=== PATIENT | male | born 1970 | race Caucasian/White ===

== ENCOUNTER 2017-02-07 13:01 | Emergency (ER) | payer MEDICAID, OTHER ==
[~2017-02-07] VITALS: Ht 175.3 cm; Wt 77.5 kg
[2017-02-07 13:11] VITALS: Ht 175.3 cm; Wt 77.5 kg
[2017-02-07] MEDS ORDERED: ONDANSETRON (ODT) 4 MG TAB ODT STA (14:20)
[2017-02-07] MEDS ORDERED: HYDROCODONE/APAP (10/325) TAB PO ONE (14:30)
--- NOTE | 2017-02-07 14:58 | RADRPT ---
PROCEDURE: XR left tibia/fibula. CLINICAL INDICATION: Leg pain TECHNIQUE: Two views available for review. COMPARISON: None available FINDINGS: The osseous structures are normal in mineralization, architecture and alignment. No fractures are i dentified. No osseous lesions are identified. The joints are unremarkable. The soft tissues are u nremarkable. IMPRESSION: Unremarkable examination RPTAT: HGDB .Luis F Poole MD, MD Date Time Electronically viewed and signed by .Luis F Poole MD, on 02/07/2017 14:58 .B/
[2017-02-07] MEDS ORDERED: IBUP-1542 PO (15:13)
[2017-02-07] MEDS ORDERED: HYDR-902 PO (15:13)
--- NOTE | 2017-02-07 15:52 | ERD ---
ER Documentation Chief Complaint Date/Time DATE: 02/07/17 TIME: 15:49 Chief Complaint LEFT LEG PAIN X 18 DAYS; PT FELL HPI Patient is a 46-year-old male with no medical problems who presents with leg pain. The patient said that for 1 week he had left sided lower leg pain. The patient said that he twisted his left ankle 7 days ago when this pain started. He is having difficulty with walking because of the pain. The patient has had no treatment as of yet. He does not currently have a primary doctor. ROS All systems reviewed and are negative except as per history of present illness. Medications Home Meds Active Scripts Hydrocodone/Acetaminophen ([place] 10-325 Tablet) 1 Each Tablet, 1 TAB PO Q6H Y for PAIN, #7 TAB Prov:LUCIO BARRON MD 02/07/17 Ibuprofen* (Motrin*) 600 Mg Tab, 600 MG PO Q8, #30 TAB Prov:LUCIO BARRON MD 02/07/17 Allergies Allergies: Coded Allergies: No Known Allergy (Unverified , 01/05/15) PMhx/Soc Medical and Surgical Hx: pt denies Medical Hx, pt denies Surgical Hx Hx Alcohol Use: Yes (occassional) Hx Substance Use: No Hx Tobacco Use: No FmHx Family History: diabetes Physical Exam Vitals Vital Signs Date Time Temp Pulse Resp B/P Pulse Ox O2 Delivery O2 Flow Rate FiO2 02/07/17 13:11 98.9 78 19 159/106 96 Physical Exam Const: No acute distress Head: Atraumatic Eyes: Normal Conjunctiva ENT: Normal External Ears, Nose and Mouth. Neck: Full range of motion..~ No meningismus. Resp: Clear to auscultation bilaterally Cardio: Regular rate and rhythm, no murmurs Abd: Soft, non tender, non distended. Normal bowel sounds Skin: No petechiae or rashes Back: No midline or flank tenderness Ext: Tenderness to palpation of the left casiano and calf without signs of deformity or infection Neur: Awake and alert Psych: Normal Mood and Affect Results 24 hrs Current Medications Medications (Trade) Dose Ordered Sig/Alvaro Route PRN Reason Start Time Stop Time Status Last Admin Dose Admin Acetaminophen/ Hydrocodone Bitart ([place] (10/325)) 1 tab ONCE ONCE PO 02/07/17 14:30 02/07/17 14:31 DC 02/07/17 15:15 Ondansetron HCl (Zofran Odt) 4 mg ONCE STAT ODT 02/07/17 14:20 02/07/17 14:22 DC 02/07/17 15:15 Procedures/MDM X-ray of the left tibia and fibula was negative per radiology. Splint Note Type: Posterior ankle Location: Left lower extremely Indication: Left leg pain Splint Assessment: Neurovascularly intact post splint placement with good fit. Patient is a 46-year-old male presents with left leg pain. The patient had an x -ray of the left tibia and fibula done which was negative for fracture or dislocation. The patient may have a soft tissue injury such as a muscle strain or muscle tear at this time and the patient was placed in a splint. The patient was given crutches as well. The patient will need to follow-up closely with her primary doctor the local clinics within 24-48 hours as he does not currently have a primary doctor. The patient can return for any worsening symptoms. At this point I see no signs of DVT I do not think the patient requires an ultrasound. The patient will be given a prescription for ibuprofen and [place] for pain. Departure Diagnosis: Primary Impression: Pain of left leg Condition: Fair Patient Instructions: Self-Care for Strains and Sprains, Possible Causes of Low Back or Leg Pain Ref[facility]: [facility] Ludivina se hernandez hecho un examen mdico de control que le indica que no est en christine condicin que requiera tratamiento urgente en el Departamento de Emergencia. Un estudio ms profundo y el tratamiento de sandoval condicin pueden esperar sin ningn riesgo hasta que usted sea atendida/o en el consultorio de sandoval mdico o christine cl leatha. Es responsabilidad suya arreglar christine keegan para el seguimiento del diomedes. MANEJO DE CONDICIONES NO URGENTES EN EL FUTURO 1) Si usted tiene un mdico de atencin primaria: ted debera llamar a sandoval mdico de atencin primaria antes de venir al departamento de emergencia. Despus de las horas de consultorio, sandoval doctor o sandoval asociado/a est disponible por telfono. El mdico o enfermero de susy en el servicio telefnico puede asesorarle por yoly medio para atender el problema, o diomedes contrario se puede programar christine keegan. 2) Si usted no tiene un mdico de atencin primaria: Llame al mdico o clnica de referencia que aparece abajo kamar las horas de consultorio para hacer christine keegan para que le vean. CLINICAS: [place] [id number] [phone] [facility] [phone] [facility] [phone] [place] [phone] [facility] [place] [address] [phone] [facility] [phone] [address] Additional Instructions: Llame al doctor MAANA y nita christine KEEGAN PARA DENTRO DE 1-2 [place].Dgale a la secretaria que nosotros le instruimos hacer esta keegan.Avise o llame si sandoval condicin se empeora antes de la keegan. Regresa aqui si peor o no mejor. LUCIO BARRON MD Feb 07, 2017 15:52
== END 2017-02-07 15:27 | disposition home or self-care (01) ==
LOC: FTE 13:01
DX: M79.662 Pain in left lower leg (principal)
CPT/HCPCS: 29515; 73590; Z7502; Z7610